=== PATIENT | female | born 1965 | race Caucasian/White ===

== ENCOUNTER 2019-09-17 15:47 | Emergency (ER) | payer SELFPAY | END 2019-09-17 15:58 | disposition short-term general hospital (02) | LOC: ER 15:47 | DX: R29.810 Facial weakness (principal) ==

== ENCOUNTER 2019-09-17 16:06 | Emergency (ER) | payer OTHER ==
[~2019-09-17] VITALS: Ht 172.7 cm; Wt 74.8 kg
--- NOTE | 2019-09-17 18:00 | Emergency Department Note ---
History of Present Illnes History of Present Illness Chief Complaint: c/o left eye lid lag History of Present Illness This is a 53 year old female . 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 migraine ythis AM which kline Quantitative Consultant Required: No Onset (how long ago): hour(s) (few hours) Location: left eye lid Radiation: non-radiation Severity: mild Onset quality: gradual Duration (how long): hour(s) (few hours) Timing of current episode: constant Progression: unchanged Chronicity: new Relieving factors: none Exacerbating factors: none Associated symptoms: headaches (history of migraine headaches which pt had one today which resolved with maxalt and advil) Treatments prior to arrival: NSAID Past Medical/Family History Physician Review I have reviewed the patient's past medical and family history. Any updates have been documented here. Past Medical History Recent Fever: No Clinical Suspicion of Infectio: No New/Unexplained Change in Ment: No Past Medical History: Migraines Other Medical History: possible hypertension and hypothyroidism Past Surgical History: Hysterectomy Social History Smoking Cessation: Never Smoker Alcohol Use: Occasional Any Illegal Drug Use: No TB Exposure/Symptoms: No Physically hurt or threatened: No Other Last Tetanus: unk Any Pre-Existing Lines (PICC,: No Review of Systems Review of Systems Constitutional: no symptoms EENTM: no symptoms Cardiovascular: no symptoms Respiratory: no symptoms Gastrointestinal: no symptoms Genitourinary: no symptoms Musculoskeletal: no symptoms Neurological: no symptoms, as per HPI Psychological: no symptoms Endocrine: no symptoms Hematological/Lymphatic: no symptoms Review of other systems All other systems reviewed and negative. Physical Exam Related Data Allergies: Coded Allergies: No Known Allergies (Unverified , 09/17/19) Triage Vital Signs Vital Signs Date Time Temp Pulse Resp B/P (MAP) Pulse Ox O2 Delivery O2 Flow Rate FiO2 09/17/19 16:55 98.4 77 18 158/94 100 Physical Exam CONSTITUTIONAL Constitutional: well-developed, well-nourished HENT HENT: normocephalic, atraumatic, oropharynx clear/moist, oropharynx normal, nose normal EYES Eyes: PERRL, conjunctivae normal, EOM normal, lids normal NECK Neck: ROM normal, supple PULMONARY Pulmonary: effort normal, breath sounds normal CARDIOVASCULAR Cardiovascular: regular rhythm, capillary refill normal, normal rate, strong pulses GASTROINTESTINAL Abdominal: soft, nontender, bowel sounds normal GENITOURINARY SKIN Skin: warm, dry MUSCULOSKELETAL Musculoskeletal: ROM normal NEUROLOGICAL Neurological: alert, oriented x 3, DTRs normal, no gross motor or sensory deficits PSYCHOLOGICAL Psychological: mood/affect normal, behavior normal, thought content normal, judgement normal Results Imaging Imaging results reviewed: Yes Impressions ct right parafalcine hyperdense mass howard meningioma. no mass efect or edema noted. explained to pt and told need for MRI as an out patient. CD rom given to patient with report Critical Care Time Subsequent provider I assumed direction of critical care for this patient from another provider of my specialty. Assessment & Plan Reassessment Reassessment time: 19:04 (all symptoms resolved) Assessment & Plan Final Impression: (1) CALABRESE'S PALSY Assessment & Plan the diagnosis of calabrese's palsy unclear. Also wanted to add a diagnosis of meningioma but where unable to enter it via trinket. I feel the headache and earlier lid droop reported by the patient is not related Depart Disposition: HOME, SELF-CARE (told to follow with pmd for further evaluation) Last Vital Signs Date Time Temp Pulse Resp B/P (MAP) Pulse Ox O2 Delivery O2 Flow Rate FiO2 09/17/19 16:55 98.4 77 18 158/94 100 Medications in the ED none MERCED ALVARADO MD September 17, 2019 18:00
--- NOTE | 2019-09-17 18:45 | Diagnostic Imaging Report ---
History: Headache, facial droop Comparison studies: None Technique: Axial images were obtained from the skull base to the vertex. Coronal and sagittal reconstructions obtained from the axial data. Dose modulation, iterative reconstruction, and/or weight based adjustment of the mA/kV was utilized to reduce the radiation dose to as low as reasonably achievable. Intravenous contrast: None Findings: Scalp/skull: No abnormalities. No fractures, blastic or lytic lesions. Extra-axial spaces: A circumscribed 1.5 x 1.2 x 1.7 (AP X TV X CC) right frontal parafalcine mass is favored to be extra-axial and is of similar density to cortical davis matter (series 2 image 24, sagittal image 27). Lesion abuts the right superior frontal gyrus without eliciting parenchymal edema. Brain sulci: Appropriate for age. Ventricles: Normal in size and configuration. No hydrocephalus. Parenchyma: No masses, acute hemorrhage, acute or chronic cortical vascular insults. Sellar/suprasellar region: No abnormalities Craniocervical junction: Patent foramen magnum. No Chiari one malformation. Included paranasal sinuses: Nonspecific frothy secretions within an accessory (Brittany) cell within the left maxillary sinus. IMPRESSION: 1. No acute intracranial abnormalities. 2. Circumscribed 1.7 cm right frontal parafalcine mass is favored to be extra-axial. Primary consideration is meningioma. Lesion exerts mild mass effect on the underlying parenchyma without eliciting edema. Recommend brain MRI without and with IV contrast to further evaluate. Signed by: Dr. Ronaldo De Souza M.D. on 09/17/2019 7:19 PM
== END 2019-09-17 19:07 | disposition home or self-care (01) ==
LOC: FSED 16:06
DX: G51.0 Bell's palsy (principal); R51 Headache
CPT/HCPCS: 70450; 99283

== ENCOUNTER → 2019-09-27 | Outpatient (CLI) | payer SELFPAY ==
[~2019-09-27] MED LIST: GADOBENATE DIMEGLUMINE 1 ML IV ONE
--- NOTE | 2019-09-27 18:32 | Diagnostic Imaging Report ---
History: Chronic headache, meningeal neoplasm Comparison studies: Head CT 09/17/2019 Technique: Pre-contrast: Sagittal T2; axial T1-IR, MPGR, DWI, T2 FLAIR Post-contrast: axial and coronal T1. Intravenous contrast: 17 cc of T. Anna Findings: Scalp: No abnormal signal. No masses. Bone marrow: Normal in signal intensity. Brain sulci: Appropriate size for patient's age. Ventricles: Normal in size and configuration. No hydrocephalus. Extra axial spaces: Homogeneously enhancing 1.7 x 1.5 x 1.2 cm (SI x AP x TV) right parafalcine mass with dural tail abuts the right superior frontal gyrus without eliciting parenchymal edema. No other mass or fluid collection. Parenchyma: No mass, hemorrhage or acute ischemia. A punctate T2 FLAIR hyperintense focus in the left superior frontal white matter is nonspecific. No other signal abnormalities Suprasellar region: No abnormalities. Craniocervical junction: Patent foramen magnum. No Chiari one malformation. Vessels: Normal flow-voids in the arteries and sinuses. IMPRESSION: 1. Unchanged 1.7 cm extra-axial right frontal parafalcine mass. Working diagnosis is meningioma. 2. Minimal left frontal chronic microvascular ischemic and/or migraine-related changes. Signed by: Dr. Ronaldo De Souza M.D. on 09/27/2019 6:29 PM
== END ==
LOC: MRI 13:42
PROVIDERS: ATTEND Psychiatry & Neurology Neurology
DX: D32.9 Benign neoplasm of meninges, unspecified (principal)
CPT/HCPCS: 70553; A9577